=== PATIENT | female | born 1960 | race Caucasian/White ===

== ENCOUNTER 2017-07-23 15:12 | Outpatient (CLI) | payer OTHER | END 2017-07-23 23:59 | disposition short-term general hospital (02) | LOC: EMS 15:12 | PROVIDERS: ATTEND Surgery | DX: R07.9 Chest pain, unspecified (principal) | CPT/HCPCS: A0425; A0427 ==

== ENCOUNTER 2017-09-04 09:02 | Outpatient (CLI) | payer OTHER ==
[2017-09-04] MEDS ORDERED: ALBUTEROL NEB 2.5 MG/3 ML INH ONE (10:00)
== END 2017-09-04 09:03 | disposition home or self-care (01) ==
LOC: RT 09:02
PROVIDERS: ATTEND Family Medicine
DX: R06.00 Dyspnea, unspecified (principal); Z87.891 Personal history of nicotine dependence
CPT/HCPCS: 94060